=== PATIENT | male | born 1935 | race Two or more races ===

== ENCOUNTER 2023-05-07 22:21 | Inpatient (IN) | payer OTHER ==
[~2023-05-07] VITALS: Ht 157.5 cm; Wt 81.6 kg
[2023-05-07] MEDS ORDERED: ATORVASTATIN CA20 MG PO (22:40)
[2023-05-07] MEDS ORDERED: TOPROL XL25 M1 PO (22:40)
[2023-05-07] MEDS ORDERED: PROSCAR5 MG PO (22:40)
[2023-05-07] MEDS ORDERED: MEMANTINE HCL10 MG PO (22:40)
[2023-05-07] MEDS ORDERED: JANUVIA100 MG PO (22:40)
[2023-05-07] MEDS ORDERED: ARICEPT5 MG PO (22:41)
[2023-05-07] MEDS ORDERED: XARELTO15 MG PO (22:41)
[2023-05-14] MEDS ORDERED: BENZONATATE200 M1 PO (17:12)
[2023-05-14] MEDS ORDERED: AMOX-CLAV 875-1 EAC1 PO (17:16)
== END 2023-05-14 22:12 | disposition home or self-care (01) | DRG 179 ==
LOC: ER 22:21 → MEDI 05-08 12:23
PROVIDERS: ADMIT Internal Medicine; ATTEND Internal Medicine
PROC: B246ZZZ Ultrasonography of Right and Left Heart (ICD-10-PCS; 2023-05-08)
PROC: 3E0F7GC Introduction of Other Therapeutic Substance into Respiratory Tract, Via Natural or Artificial Opening (ICD-10-PCS; 2023-05-08)
PROC: BB24ZZZ Computerized Tomography (CT Scan) of Bilateral Lungs (ICD-10-PCS; principal; 2023-05-09)
DX: J69.0 Pneumonitis due to inhalation of food and vomit (principal); J22 Unspecified acute lower respiratory infection; E78.49 Other hyperlipidemia; I48.91 Unspecified atrial fibrillation; E11.9 Type 2 diabetes mellitus without complications; I10 Essential (primary) hypertension; D29.1 Benign neoplasm of prostate